=== PATIENT | female | born 2000 | race Caucasian/White ===

== ENCOUNTER 2022-08-12 01:22 | Outpatient (CLI) | payer OTHER ==
[~2022-08-12] VITALS: Ht 162.6 cm; Wt 73.1 kg
[2022-08-12 01:42] VITALS: BP 148/69
[2022-08-12] MEDS ORDERED: HOME MED LIST COMPLETE! XX SCH (01:50)
[2022-08-12] MEDS ORDERED: UNRESOLVED CLARIFICATION ENTRY XX STA (01:52)
[2022-08-12] MEDS ORDERED: BICITRA 30ML SOLN UDC PO ONE (02:00)
[2022-08-12 02:03] VITALS: BP 135/70
[2022-08-12 02:32] LABS: HEMATOCRIT 33.6 % (36.0-47.0); HEMOGLOBIN 11.2 g/dl (12.0-15.5); MEAN CORPUSCULAR HEMOGLOBIN 30.9 pg (27.0-33.0); MEAN CORPUSCULAR HGB CONC 33.3 g/dl (32.0-36.5); MEAN CORPUSCULAR VOLUME 92.8 fl (80.0-96.0); PLATELET COUNT, AUTOMATED 252 10^3/uL (150-450); RED BLOOD COUNT 3.62 10^6/uL (4.00-5.40); WHITE BLOOD COUNT 11.2 10^3/uL (4.0-10.0)
[2022-08-12 02:50] LABS: ALBUMIN 2.7 G/DL (3.2-5.2); ALKALINE PHOSPHATASE 60 U/L (46-116); ALT/SGPT 16 U/L (7.0-40); AST/SGOT 9 U/L (<34); BILIRUBIN,TOTAL 0.3 MG/DL (0.3-1.2); BLOOD UREA NITROGEN 8 MG/DL (9-23); CALCIUM LEVEL 8.2 MG/DL (8.5-10.1); CARBON DIOXIDE LEVEL 23 MMOL/L (20-31); CHLORIDE LEVEL 108 MMOL/L (98-107); CREATININE FOR GFR 0.41 MG/DL (0.55-1.30); GLOMERULAR FILTRATION RATE > 60.0 (>60); GLUCOSE, FASTING 90 MG/DL (60-100); POTASSIUM SERUM 3.3 MMOL/L (3.5-5.1); SODIUM LEVEL 140 MMOL/L (136-145); TOTAL PROTEIN 5.3 G/DL (5.7-8.2)
== END 2022-08-12 03:29 | disposition home or self-care (01) ==
LOC: M LDO 01:22
PROVIDERS: ATTEND Obstetrics & Gynecology
DX: O99.613 Diseases of the digestive system complicating pregnancy, third trimester (principal); Z3A.35 35 weeks gestation of pregnancy; O09.33 Supervision of pregnancy with insufficient antenatal care, third trimester; K29.70 Gastritis, unspecified, without bleeding; Z88.1 Allergy status to other antibiotic agents; Z91.013 Allergy to seafood
CPT/HCPCS: 36415; 59025; 80053; 81001; 85027; 87086; G0463

== ENCOUNTER 2023-01-18 18:35 | Emergency (ER) | payer MEDICAID, OTHER ==
[~2023-01-18] VITALS: Ht 162.6 cm; Wt 65.0 kg
[2023-01-18 18:36] VITALS: TEMP 102.2; O2SAT 95
[2023-01-18 20:08] LABS: BASO % 0.3 % (0.0-1.0); HEMATOCRIT 38.8 % (36.0-47.0); HEMOGLOBIN 12.8 g/dl (12.0-15.5); LYMPH # 1.6 10^3/uL (1.5-5.0); LYMPH % 10.1 % (24.0-44.0); MEAN CORPUSCULAR HEMOGLOBIN 29.8 pg (27.0-33.0); MEAN CORPUSCULAR VOLUME 90.2 fl (80.0-96.0); MONO % 10.3 % (2.0-8.0); NEUTROPHILS # 12.3 10^3/uL (1.5-8.5); NEUTROPHILS % 78.9 % (36.0-66.0); PLATELET COUNT, AUTOMATED 304 10^3/uL (150-450); WHITE BLOOD COUNT 15.6 10^3/uL (4.0-10.0)
[2023-01-18 20:11] LABS: RSV AMPLIFICATION NEGATIVE (NEGATIVE)
[2023-01-18 20:30] LABS: MONO # 1.6 10^3/uL (0.0-0.8)
[2023-01-18] MEDS ORDERED: NS 1,000 ML IV ONE (20:30)
[2023-01-18] MEDS ORDERED: ONDANSETRON 4MG 2ML VIAL IV ONE (20:30)
[2023-01-18] MEDS ORDERED: KETOROLAC 30 MG/ML 1ML VIAL IV ONE (20:30)
[2023-01-18 20:31] LABS: BLOOD UREA NITROGEN 12 MG/DL (9-23); CALCIUM LEVEL 9.4 MG/DL (8.5-10.1); CARBON DIOXIDE LEVEL 24 MMOL/L (20-31); CHLORIDE LEVEL 107 MMOL/L (98-107); CREATININE FOR GFR 0.65 MG/DL (0.55-1.30); GLOMERULAR FILTRATION RATE > 60.0 (>60); GLUCOSE, FASTING 97 MG/DL (60-100); POTASSIUM SERUM 4.2 MMOL/L (3.5-5.1); SODIUM LEVEL 139 MMOL/L (136-145)
[2023-01-18 20:51] LABS: LIPASE 29 U/L (12-53)
[2023-01-18 20:53] LABS: ALBUMIN 3.8 G/DL (3.2-5.2); ALKALINE PHOSPHATASE 61 U/L (46-116); ALT/SGPT 19 U/L (7.0-40); AST/SGOT 11 U/L (<34); BILIRUBIN,DIRECT 0.4 MG/DL (<0.4); BILIRUBIN,TOTAL 0.9 MG/DL (0.3-1.2); TOTAL PROTEIN 6.8 G/DL (5.7-8.2)
[2023-01-18 21:30] VITALS: BP 112/63
[2023-01-18] MEDS ORDERED: ISOVUE-370 76% 100ML VIAL As Ordered ONE (21:35)
[2023-01-18] MEDS ORDERED: LevoFLOXacin IV 750 MG in IV 1 EA IV ONE (22:10)
[2023-01-18] MEDS ORDERED: LEVO1TAB40 PO (22:44)
[2023-01-18] MEDS ORDERED: ONDA4TAB6 PO (22:44)
[2023-01-18] MEDS ORDERED: NORCO 5/325MG TABLET (HOME DOSE PACK) PO ONE (22:45)
== END 2023-01-19 01:22 | disposition home or self-care (01) ==
LOC: M ED 18:35
DX: N10 Acute pyelonephritis (principal); F17.200 Nicotine dependence, unspecified, uncomplicated; Z88.1 Allergy status to other antibiotic agents; Z91.013 Allergy to seafood; Z91.040 Latex allergy status; Z79.83 Long term (current) use of bisphosphonates; Z79.2 Long term (current) use of antibiotics
CPT/HCPCS: 74177; 80048; 80076; 81001; 83690; 84702; 85025; 87086; 87631; 96365; 96366; 96375; 99284; J1885; J1956; J2405; Q9967

== ENCOUNTER 2023-01-22 22:08 | Emergency (ER) | payer OTHER ==
[~2023-01-22] VITALS: Ht 162.6 cm; Wt 64.5 kg
[2023-01-22 22:08] VITALS: TEMP 98.2
[~2023-01-22 22:08] MED LIST: LEVO1TAB40 PO; ONDA4TAB6 PO
[2023-01-23] MEDS ORDERED: KETOROLAC 30 MG/ML 1ML VIAL IV ONE (00:15)
[2023-01-23] MEDS ORDERED: NS 1,000 ML IV ONE (00:15)
[2023-01-23 01:40] LABS: BASO % 0.5 % (0.0-1.0); EOS # 0.1 10^3/uL (0.0-0.5); EOS % 1.1 % (0.0-3.0); HEMATOCRIT 38.5 % (36.0-47.0); LYMPH # 2.7 10^3/uL (1.5-5.0); LYMPH % 32.7 % (24.0-44.0); MEAN CORPUSCULAR HEMOGLOBIN 30.2 pg (27.0-33.0); MEAN CORPUSCULAR HGB CONC 33.8 g/dl (32.0-36.5); MEAN CORPUSCULAR VOLUME 89.3 fl (80.0-96.0); MONO # 0.7 10^3/uL (0.0-0.8); MONO % 8.9 % (2.0-8.0); NEUTROPHILS # 4.7 10^3/uL (1.5-8.5); NEUTROPHILS % 56.6 % (36.0-66.0); PLATELET COUNT, AUTOMATED 427 10^3/uL (150-450); RED BLOOD COUNT 4.31 10^6/uL (4.00-5.40); WHITE BLOOD COUNT 8.3 10^3/uL (4.0-10.0)
[2023-01-23 01:45] VITALS: BP 101/61; O2SAT 99
[2023-01-23 01:49] LABS: ERYTHROCYTE SEDIMENTATION RATE 66 mm/hr (0-20)
[2023-01-23 01:50] LABS: INR 1.15; PROTHROMBIN TIME 14.4 SECONDS (12.5-14.5)
[2023-01-23 01:51] LABS: PARTIAL THROMBOPLASTIN TIME 29.4 SECONDS (24.8-34.2)
[2023-01-23 02:05] LABS: ALBUMIN 3.6 G/DL (3.2-5.2); ALKALINE PHOSPHATASE 118 U/L (46-116); ALT/SGPT 74 U/L (7.0-40); AST/SGOT 40 U/L (<34); BILIRUBIN,DIRECT 0.2 MG/DL (<0.4); BILIRUBIN,TOTAL 0.5 MG/DL (0.3-1.2); CK-MB VALUE MASS < 1.0 NG/ML (<3.6); CPK CREATINE PHOSPHOKINASE 39 U/L (34-145); MB/CK RELATIVE INDEX 2.56 (< OR =4); TOTAL PROTEIN 7.1 G/DL (5.7-8.2)
[2023-01-23] MEDS ORDERED: BACT800T5 PO (02:40)
[2023-01-23] MEDS ORDERED: KETO10TAB PO (02:40)
== END 2023-01-23 02:50 | disposition home or self-care (01) ==
LOC: M ED 22:08
DX: N10 Acute pyelonephritis (principal); R25.2 Cramp and spasm; R74.01 Elevation of levels of liver transaminase levels; J45.909 Unspecified asthma, uncomplicated; F12.10 Cannabis abuse, uncomplicated; F17.200 Nicotine dependence, unspecified, uncomplicated; Z87.442 Personal history of urinary calculi; Z88.1 Allergy status to other antibiotic agents; Z91.013 Allergy to seafood; Z91.040 Latex allergy status; Z79.1 Long term (current) use of non-steroidal anti-inflammatories (NSAID); Z79.83 Long term (current) use of bisphosphonates; Z79.899 Other long term (current) drug therapy
CPT/HCPCS: 80047; 80076; 81001; 82550; 82553; 83605; 84702; 85025; 85610; 85652; 85730; 86140; 93970; 96361; 96374; 99284; J1885

== ENCOUNTER 2023-09-06 00:09 | Emergency (ER) | payer OTHER ==
[~2023-09-06] VITALS: Ht 162.6 cm; Wt 60.9 kg
[~2023-09-06 00:09] MED LIST changes: +BACT800T5 PO; +KETO10TAB PO; +ONDA-282 PO; -ONDA4TAB6 PO
[2023-09-06 00:10] VITALS: TEMP 99.5
[2023-09-06] MEDS ORDERED: MISO200T83 BUC (00:18)
[2023-09-06 01:31] LABS: BASO # 0.1 10^3/uL (0.0-0.2); BASO % 0.4 % (0.0-1.0); EOS # 0.1 10^3/uL (0.0-0.5); EOS % 0.6 % (0.0-3.0); HEMATOCRIT 36.5 % (36.0-47.0); HEMOGLOBIN 12.2 g/dl (12.0-15.5); LYMPH % 24.7 % (24.0-44.0); MEAN CORPUSCULAR HEMOGLOBIN 30.3 pg (27.0-33.0); MEAN CORPUSCULAR HGB CONC 33.4 g/dl (32.0-36.5); MEAN CORPUSCULAR VOLUME 90.6 fl (80.0-96.0); MONO # 0.9 10^3/uL (0.0-0.8); MONO % 7.1 % (2.0-8.0); NEUTROPHILS # 7.9 10^3/uL (1.5-8.5); NEUTROPHILS % 66.6 % (36.0-66.0); PLATELET COUNT, AUTOMATED 391 10^3/uL (150-450); RED BLOOD COUNT 4.03 10^6/uL (4.00-5.40); WHITE BLOOD COUNT 11.9 10^3/uL (4.0-10.0)
[2023-09-06 01:56] LABS: BLOOD UREA NITROGEN 9 MG/DL (9-23); CARBON DIOXIDE LEVEL 26 MMOL/L (20-31); CHLORIDE LEVEL 102 MMOL/L (98-107); CREATININE FOR GFR 0.59 MG/DL (0.55-1.30); GLOMERULAR FILTRATION RATE > 60.0 (>60); GLUCOSE, FASTING 93 MG/DL (60-100); POTASSIUM SERUM 4.1 MMOL/L (3.5-5.1); SODIUM LEVEL 134 MMOL/L (136-145)
[2023-09-06 03:30] VITALS: BP 96/54; O2SAT 99
== END 2023-09-06 04:34 | disposition home or self-care (01) ==
LOC: M ED 00:09
DX: O20.0 Threatened abortion (principal); O20.8 Other hemorrhage in early pregnancy; Z88.1 Allergy status to other antibiotic agents; Z91.040 Latex allergy status; Z91.013 Allergy to seafood

== ENCOUNTER 2023-09-13 23:17 | Emergency (ER) | payer OTHER ==
[~2023-09-13] VITALS: Ht 162.6 cm; Wt 61.2 kg
[~2023-09-13 23:17] MED LIST changes: +MISO200T83 BUC
[2023-09-13 23:45] VITALS: TEMP 98.8
[2023-09-14] MEDS ORDERED: KETOROLAC 30 MG/ML 1ML VIAL IV ONE (01:25)
[2023-09-14] MEDS ORDERED: LIDO5DIS41 TD (01:45)
[2023-09-14] MEDS ORDERED: HYDR-3713 PO (01:45)
[2023-09-14] MEDS: LIDOCAINE 5% (LIDODERM) PATCH TD ONE (02:04)
[2023-09-14] MEDS: KETOROLAC 30 MG/ML 1ML VIAL IM ONE (02:04)
[2023-09-14] MEDS: NORCO 5/325MG TABLET (HOME DOSE PACK) PO ONE (02:05)
[2023-09-14 02:09] VITALS: BP 124/76; O2SAT 98
== END 2023-09-14 02:10 | disposition home or self-care (01) ==
LOC: M ED 23:17
DX: S20.219A Contusion of unspecified front wall of thorax, initial encounter (principal); Y04.8XXA Assault by other bodily force, initial encounter; S60.222A Contusion of left hand, initial encounter; W22.09XA Striking against other stationary object, initial encounter; Y92.410 Unspecified street and highway as the place of occurrence of the external cause; Y93.9 Activity, unspecified; Y99.9 Unspecified external cause status; Z79.899 Other long term (current) drug therapy; Z88.1 Allergy status to other antibiotic agents; Z91.040 Latex allergy status; Z91.013 Allergy to seafood
CPT/HCPCS: 71250; 73130; 96372; 99283; J1885